=== PATIENT | male | born 1970 | race Hispanic/Latino ===

== ENCOUNTER 2019-08-18 17:13 | Emergency (ER) | payer SELFPAY ==
[~2019-08-18] VITALS: Ht 177.8 cm; Wt 97.3 kg
--- NOTE | 2019-08-18 18:44 | Diagnostic Imaging Report ---
Exam: Head CT without contrast History: Right-sided facial weakness x2 days Comparison studies: None Technique: Axial images were obtained from the skull base to the vertex. Coronal and sagittal images reconstructed from the axial data. Dose modulation, iterative reconstruction, and/or weight based adjustment of the mA/kV was utilized to reduce the radiation dose to as low as reasonably achievable. Radiation dose: Total DLP: 1090.28 mGy*cm. Estimated effective dose: DLP x 0.015 Intravenous contrast: None Findings: Scalp: No abnormalities. Bones: No fractures, blastic or lytic lesions. Brain sulci: Appropriate for age. Ventricles: Normal in size and configuration. No hydrocephalus. Extra-axial spaces: No masses, no fluid collection. Parenchyma: No mass, acute hemorrhage or acute or chronic cortical and lobe. Incidental punctate left parietotemporal dystrophic calcification without surrounding edema or mass effect which may be sequela of remote infection or inflammation. Sellar/suprasellar region: No abnormalities. Craniocervical junction: Patent foramen magnum. No Chiari one malformation. Included paranasal sinuses: Clear. Middle ear mastoid cavities: Clear. IMPRESSION: No acute abnormalities. Signed by: Dr. Dieter Lau M.D. on 08/18/2019 6:41 PM
[2019-08-18 19:01] VITALS: BP 135/85
== END 2019-08-18 19:01 | disposition home or self-care (01) ==
LOC: FSED 17:13
DX: R53.1 Weakness (principal); G51.0 Bell's palsy
CPT/HCPCS: 70450; 99283

== ENCOUNTER → 2024-06-15 | Day surgery (SDC) | payer OTHER ==
[~2024-06-15] MED LIST: HYOSCYAMINE SULFATE 0.5 MG/ML INJ ONE; LIDOCAINE HCL 2% LOCAL INJ 5 ML SDV VIAL INJ ONE; PROPOFOL IV EMULSION 50 ML IV ONE; SIMVASTATIN20 MG PO
[2024-06-15] MEDS: LACTATED RINGER'S 1,000 ML ONE (09:48)
[2024-06-15 11:04] VITALS: TEMP 97.3
[2024-06-15] MEDS: ONDANSETRON HCL INJ 2MG/ML 2ML 2 MG/ML VIAL ONE (11:26)
[2024-06-15 11:45] VITALS: BP 110/75; PULSE 56; RESP 16; O2SAT 99
== END | disposition home or self-care (01) ==
LOC: OR 07:45
PROVIDERS: ATTEND Internal Medicine Gastroenterology
DX: Z12.11 Encounter for screening for malignant neoplasm of colon (principal); K64.8 Other hemorrhoids; E78.5 Hyperlipidemia, unspecified; I45.10 Unspecified right bundle-branch block; Z01.810 Encounter for preprocedural cardiovascular examination; Z79.899 Other long term (current) drug therapy
CPT/HCPCS: 45378; 93005; J1980; J2003; J2405; J2704; J7121